=== PATIENT | female | born 2000 | race Caucasian/White ===

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

== ENCOUNTER 2020-06-10 21:02 | Emergency (ER) | payer SELFPAY ==
[2020-06-10 21:03] VITALS: BP 123/70; PULSE 79; RESP 14; TEMP 36.6; O2SAT 99; BMI 29.4
[2020-06-10 21:34] LABS: Absolute Lymphocyte Count 4.29 X10^3/uL (0.83-4.51); Absolute Neutrophil Count 3.3 X10^3/uL (2.0-7.7); Basophil# 0.04 X10^3/uL; Basophil% 0.5 % (0-1); Eosinophil# 0.27 X10^3/uL; Eosinophils% 3.1 % (0-5); Lymphocyte # 4.29 X10^3/ul (4.0); Lymphocyte % 49.6 % (19-41); Mean Corp Hgb Conc 34.1 g/dL (32-36); Mean Corpuscular Hgb 31.1 pg (27.0-32.0); Mean Corpuscular Volume 91.1 fL (81-99); Mean Platelet Vol. 9.8 fl (6.2-12.0); Monocyte# 0.72 X10^3/uL; Monocyte% 8.3 % (0-10); NRBC Flagged by Analyzer 0 % (0-5); Neutrophil # 3.31 X10^3/uL (2.7-7.7); Neutrophil % 38.3 % (47-70); Platelet Count 335 K/mm3 (150-450); RBC Distribution Width CV 11.7 % (11.6-14.6); RBC Distribution Width SD 38.8 fl (35.1-43.9); White Blood Count 8.7 K/mm3 (4.4-11.0)
--- NOTE | 2020-06-10 21:34 | US_ITS ---
STUDY: ULTRASOUND OF THE FEMALE PELVIS - COMPLETE REASON FOR EXAM: Female, 20 years old. HEAVY BLEEDING WITH OFF AND ON POSITIVE HOME TESTS. SUSPECT INCOMPLETE VS COMPLETE AB.... NEGATIVE TEST RESULTS IN THE ER TODAY LMP: 05/01/2020 TECHNIQUE: Transvaginal TECHNICAL QUALITY: Adequate. COMPARISON: None. FINDINGS: The uterus is anteverted and is in a midline position. 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 The uterus measures 7.4 x 4.1 x 3.4 cm. Normal uterine cervix. The endometrium measures 4 mm in thickness, and is hyperechoic. There is no demonstrated endometrial mass. There is no demonstrated myometrial mass. I.U.D. - The patient does not have an I.U.D. The right ovary is visualized. The right ovary measures 3.0 x 2.5 x 1.3 cm. There is no right ovarian cyst or ovarian mass. There is no visualized right adnexal mass or complex lesion. There is normal arterial and normal venous vascularity. The left ovary is visualized. The left ovary measures 3.3 x 1.9 x 2.1 cm. There is no left ovarian cyst or ovarian mass. There is no visualized left adnexal mass or complex lesion. There is normal arterial and normal venous vascularity. There is minimal fluid in the cul-de-sac. Debris is seen in the urinary bladder.. Polycystic ovary disease: No. 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 There is no evidence of gestational sac or products of conception within the uterus. There is a small amount of fluid in the cul-de-sac. Debris is present in the urinary bladder. Electronically Signed: Victorino Jones MD at 22:34 EDT , Service support ,
--- NOTE | 2020-06-10 21:38 | ED.VIS.GEN ---
History of Present Illness Chief Complaint: Vag Bleeding Detail of Chief Complaint: Heavy vaginal bleeding that started yesterday Informant: Patient, Significant Other Onset: Days Context: Sudden Onset Timing: Continuous Quality: Pad every 1/2 hour and orthostatic Location: Vaginal bleeding Current Severity: Severe Maximum Severity: Severe Worsened by: Positive test question miscarriage Relieved by: Nothing Associated Symptoms: Lightheadedness and fatigue also darker colored areola Narrative: Patient is a 20-year-old female who is had both positive and negative home test. She is approximately 1 month late. She does report breast tenderness. She reports discoloration of the tissue around her nipple. She denies dysuria, urgency or hematuria. She denies vaginal discharge. There is no history of trauma. Prior similar symptoms: No Recent Illness/Hospitalization: No - Past Medical History (1) No significant past medical history Status: Acute Past Medical History - Allergies and Home Meds Allergies/Adverse Reactions: Allergies No Known Allergies Allergy (Verified 06/10/20 21:03) Primary Care Physician: Yomi Renee MD [Primary Care Provider] - Prior records reviewed: No Past Medical History: None Surgical History: no surgical history Lives: Spouse/ Significant Other Smoking Status: Never smoker Alcohol: None Drugs: None Review of Systems General: Denies: Chills, Fever, Malaise Eyes: Denies: Visual changes - bilaterally, Blurred Vision - bilaterally ENT: Denies: Rhinorrhea, Sore throat Cardiovascular: Reports: - - Orthostatic symptoms. Denies: Chest pain, Palpitations Respiratory: Denies: Dyspnea, Cough, Dyspnea on exertion Gastrointestinal: Reports: Abdominal pain, Nausea. Denies: Vomiting, Diarrhea, Constipation, Melena, Hematochezia Genitourinary: Denies: Dysuria, Hematuria Musculoskeletal: Denies: Myalgias, Arthralgias, Neck pain, Back pain Skin: Denies: Rash, Wounds Neurological: Denies: Headache, Weakness Hematologic: Denies: Easy bruising, Easy bleeding Physical Exam Vital Signs/Narrative: Vital Signs Temp Pulse Resp BP Pulse Ox 06/10/20 21:03 97.9 F 79 14 123/70 H 99 Inital Vital Signs reviewed: Yes General: Well nourished, Well developed Head: Normocephalic, Atraumatic Eyes: Perrl, EOMI. Negative for: Pale conjunctiva ENT: Moist mucous membranes, No rhinorrhea, - - Adjunctive are pink Neck: Supple, Nontender, No lymphadenopathy, No JVD Cardiovascular: Regular rate, Regular rhythm, No murmurs, Normal S1, Normal S2 Respiratory: No distress, CTA bilaterally Abdomen: Soft, Nondistended, Normal bowel sounds, No masses, Tender - To deep palpation suprapubic region. : - - External genitalia normal. There is blood noted at the introitus. There is blood in the vaginal vault. The OS is oblong and shape. Uterus is slightly enlarged. She has discomfort with palpation of the uterus. There is no adnexal fullness or mass. 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 There is no evidence of gestational sac or products of conception within the uterus. There is a small amount of fluid in the cul-de-sac. Debris is present in the urinary bladder. Electronically Signed: Victorino Jones MD at 22:34 EDT , Service support , 06/10/20 21:34 Transvaginal Non- [US] Stat Laboratory Results 06/10/20 06/10/20 06/10/20 21:20 21:20 22:25 WBC 8.7 RBC 4.50 Hgb 14.0 Hct 41.0 MCV 91.1 MCH 31.1 MCHC 34.1 RDW Std Deviation 38.8 RDW Coeff of Julius 11.7 Plt Count 335 MPV 9.8 Immature Gran % (Auto) 0.200 Neut % (Auto) 38.3 L Lymph % (Auto) 49.6 H Whitley % (Auto) 8.3 Eos % (Auto) 3.1 Baso % (Auto) 0.5 Absolute Neuts (auto) 3.3 Absolute Lymphs (auto) 4.29 Nucleated RBC % 0 Serum , Qual NEGATIVE Blood Type TNP 06/10/20 22:25 WBC RBC Hgb Hct MCV MCH MCHC RDW Std Deviation RDW Coeff of Julius Plt Count MPV Immature Gran % (Auto) Neut % (Auto) Lymph % (Auto) Whitley % (Auto) Eos % (Auto) Baso % (Auto) Absolute Neuts (auto) Absolute Lymphs (auto) Nucleated RBC % Serum , Qual Blood Type A POSITIVE Serum test is negative. In light of the amount of bleeding, the fact that the loss is oblong and not consistent with a nonparous cervix suspect patient had a complete AB. She was discharged to home with appropriate follow-up. - Medical Decision Making Differential diagnosis includes abnormal vaginal bleeding, inevitable versus complete versus incomplete AB. Appropriate lab including transvaginal ultrasound was obtained. ED Disposition - Plan for ED Patient: Disposition: Home or Assisted Living Diagnosis: Spontaneous miscarriage Instructions: ED MISCARRIAGE Completed Referrals: Yomi Renee MD [Primary Care Provider] - Kelle Garcia MD [STAFF PHYSICIAN] - 3-5 Days
[2020-06-10 21:42] LABS: Internal QC Validated? YES +Cl - CLEAR BKGD; Pregnancy, Serum, hCG Quali. NEGATIVE Negative
[2020-06-10 23:26] VITALS: BP 115/80; PULSE 78; RESP 16; O2SAT 98
== END 2020-06-10 23:27 | disposition home or self-care (01) ==
PROVIDERS: Emergency Provider Emergency Medicine; PCP Family Medicine
DX: O03.9 Complete or unspecified spontaneous abortion without complication (principal); R53.83 Other fatigue; R42 Dizziness and giddiness; Z79.899 Other long term (current) drug therapy
CPT/HCPCS: 76830; 84703; 85025; 86900; 86901; 99283; A4216

== ENCOUNTER 2020-07-06 21:10 | Emergency (ER) | payer SELFPAY ==
[2020-07-06 21:11] VITALS: BP 131/76; PULSE 87; RESP 14; TEMP 36.8; O2SAT 99; BMI 30.9
--- NOTE | 2020-07-06 21:20 | EKG12_ITS ---
Test Reason : CP Blood Pressure : / mmHG Vent. Rate : 083 BPM Atrial Rate : 083 BPM P-R Int : 132 ms QRS Dur : 076 ms QT Int : 366 ms P-R-T Axes : 056 064 041 degrees QTc Int : 430 ms Normal sinus rhythm Normal ECG Confirmed by MAC CLEMENTE, KRISTIN ([id number]), script editor KATH MAHER ([id number]) on 07/07/2020 10:46:48 AM Referred By: CL Confirmed By:KRISTIN WATTS MD
--- NOTE | 2020-07-06 21:31 | ED.RN ---
RN CALLED FOR EKG, PULLED OLD EKGS FOR
--- NOTE | 2020-07-06 22:01 | RAD_ITS ---
STUDY: X-RAY CHEST REASON FOR EXAM: Female, 20 years old. Pressure in the left chest. TECHNIQUE: AP and lateral views of the chest. COMPARISON: None. FINDINGS: The lungs are clear and expanded. There is no demonstrated pleural abnormality. Normal size heart. Normal mediastinum and matt. Normal visualized pulmonary arteries. Normal visualized aortic arch and descending thoracic aorta. Very mild dextroscoliosis of the thoracic spine. Normal visualized ribs, clavicles, and shoulders. There is no demonstrated abnormality of the visualized soft tissue structures of the upper abdomen. RAD/Chest PA and Lateral IMPRESSION: No acute cardiopulmonary disease. Electronically Signed: Jimmy Neil DO at 23:33 EDT Tel [phone], Service support ,
--- NOTE | 2020-07-06 22:13 | ED.VIS.GEN ---
History of Present Illness Chief Complaint: Chest Pain Informant: Patient Narrative: Patient is a 20-year-old female with a past medical history of seizures who presents to emerge department for chest tightness. This started yesterday and lasted into today. Denies any significant shortness of breath with this. No leg swelling calf pain. No history of cardiac disease in herself or in her family had a young age. She denies any cough, cold, congestion. No fevers or chills. No abdominal pain or nausea/vomiting. No diaphoresis. She does not know any aggravating or relieving factors. She currently rates her symptoms as moderate. Is under the left breast and goes to the sternal region. No radiation into her back. She denies smoking, drinking or drug use. Past Medical History - Allergies and Home Meds Allergies/Adverse Reactions: Allergies No Known Allergies Allergy (Verified 07/06/20 21:11) Primary Care Physician: Yomi Renee MD [Primary Care Provider] - 2 Days Surgical History: no surgical history Smoking Status: Never smoker Review of Systems All systems negative except as indicated General: Denies: Chills, Fever, Sweats Eyes: Denies: Visual changes - bilaterally, Diplopia ENT: Denies: Rhinorrhea, Sore throat Cardiovascular: Reports: Chest pain. Denies: Palpitations Respiratory: Denies: Dyspnea, Cough, Dyspnea on exertion Gastrointestinal: Reports: Melena, Hematochezia. Denies: Abdominal pain, Nausea, Vomiting, Diarrhea Genitourinary: Denies: Dysuria, Hematuria, Frequency Musculoskeletal: Denies: Back pain, Extremity Pain Skin: Denies: Rash, Wounds Neurological: Denies: Headache, Weakness, Numbness Physical Exam Vital Signs/Narrative: Vital Signs Temp Pulse Resp BP Pulse Ox 07/06/20 21:11 98.2 F 87 14 131/76 H 99 Inital Vital Signs reviewed: Yes General: Well nourished, Well developed, No Acute Distress Head: Normocephalic, Atraumatic Eyes: Perrl, EOMI ENT: Moist mucous membranes, No rhinorrhea Neck: Supple, Nontender Cardiovascular: Regular rate, Regular rhythm, No murmurs Respiratory: No distress, CTA bilaterally, Chest nontender Abdomen: Soft, Nontender, Nondistended, Normal bowel sounds Back: Nontender, Normal Inspection Extremities: Nontender, No edema. Negative for: Edema, Calf Tenderness Skin: Normal color, No rash Neurological: Alert, Oriented x3, Cranial nerves II-XII grossly intact, Normal Strength, Normal Sensation Psychological: Normal affect, Normal Mood Diagnostic/Tx/Re-eval - EKG Initial EKG Interpretation: - - Rate of 83 bpm and normal sinus rhythm. Normal intervals. Normal axis. No ST elevations or depressions appreciated. No T wave abnormalities. Prior EKG for comparison was performed on February 12, 2019 which is similar in appearance. - Medical Decision Making Patient presents to the emergency department for chest tightness. Upon arrival to the emerge department vital signs within normal limits. She is not tachycardic. Satting well on room air. She is PERC negative. Will check EKG, chest x-ray and basic lab work. EKG did not show any signs of acute ischemia or arrhythmia. Chest x-ray is negative for acute cardiopulmonary abnormality. Lab work did not reveal any significant acute abnormality. Initial troponin negative. Believe that the majority this is related to stress but cannot say for certain. This does not appear to be cardiac in nature at this time. She is to follow-up with her PCP. Warning signs and symptoms for which to return to the ED are reviewed with her. She understands and is agreeable this plan. Will discharge home in stable condition. ED Disposition - Plan for ED Patient: Disposition: Home or Assisted Living Diagnosis: Chest tightness Instructions: ED Chest Pain NonCardiac Referrals: Yomi Renee MD [Primary Care Provider] - 2 Days
[2020-07-06 22:25] LABS: Absolute Neutrophil Count 5.2 X10^3/uL (2.0-7.7); Basophil# 0.05 X10^3/uL; Basophil% 0.5 % (0-1); Eosinophil# 0.29 X10^3/uL; Eosinophils% 2.9 % (0-5); Hemoglobin 14.2 g/dL (12.0-15.0); Lymphocyte % 38.6 % (19-41); Mean Corpuscular Hgb 30.7 pg (27.0-32.0); Mean Corpuscular Volume 92.9 fL (81-99); Monocyte# 0.67 X10^3/uL; Monocyte% 6.6 % (0-10); NRBC Flagged by Analyzer 0 % (0-5); Neutrophil # 5.18 X10^3/uL (2.7-7.7); Neutrophil % 51.2 % (47-70); Platelet Count 336 K/mm3 (150-450); RBC Distribution Width CV 11.9 % (11.6-14.6); RBC Distribution Width SD 40.9 fl (35.1-43.9); Red Blood Count 4.63 M/mm3 (4.2-5.4); White Blood Count 10.1 K/mm3 (4.4-11.0)
[2020-07-06 22:39] LABS: Anion Gap 5 (5-15); BUN 14 mg/dL (7-18); BUN/Creat Ratio 16.9 RATIO (10-20); Calcium,Total 8.8 mg/dL (8.5-10.1); Chloride 109 mmol/L (98-107); Creatinine, Serum 0.83 mg/dL (0.55-1.02); EST Glomerular Filtration Rate 93 mL/min (>60); Est Glom Filt Rate - Afr Amer 113 mL/min (>60); Estimated Creatinine Clearance 81.59 ml/min; Glucose 86 mg/dL (74-106); Potassium 3.4 mmol/L (3.5-5.1); Sodium Level 140 mmol/L (136-145)
[2020-07-06 23:54] VITALS: BP 128/78; PULSE 85; RESP 16; O2SAT 98
== END 2020-07-07 | disposition home or self-care (01) ==
PROVIDERS: Emergency Provider Emergency Medicine; PCP Family Medicine
DX: R07.89 Other chest pain (principal); Z79.899 Other long term (current) drug therapy
CPT/HCPCS: 71046; 80048; 84484; 85025; 93005; 99282